=== PATIENT | female | born 1955 | race Caucasian/White ===

== ENCOUNTER → 2017-04-22 | Outpatient (CLI) | payer BC | LOC: HYPER 07:19 | DX: S91.001A Unspecified open wound, right ankle, initial encounter (principal); T63.3 Toxic effect of venom of spider; J43.9 Emphysema, unspecified; F32.9 Major depressive disorder, single episode, unspecified; F17.210 Nicotine dependence, cigarettes, uncomplicated; W57.XXXA Bitten or stung by nonvenomous insect and other nonvenomous arthropods, initial encounter; Y93.89 Activity, other specified; Y92.89 Other specified places as the place of occurrence of the external cause; Y99.8 Other external cause status ==

== ENCOUNTER → 2017-05-07 | Outpatient (CLI) | payer BC | LOC: HYPER 06:59 | DX: T63.6 Toxic effect of contact with other venomous marine animals (principal); J43.9 Emphysema, unspecified; F32.9 Major depressive disorder, single episode, unspecified; F17.210 Nicotine dependence, cigarettes, uncomplicated; W57.XXXD Bitten or stung by nonvenomous insect and other nonvenomous arthropods, subsequent encounter ==

== ENCOUNTER → 2017-09-12 | Outpatient (CLI) | payer BC ==
[~2017-09-12] MED LIST: DOXYCYCLINE 10100 MG PO; HYDROXYZINE HCL25 M1 PO; PREDNISONE 10 M10 MG PO; TRAMADOL 50 MG50 MG PO
== END ==
LOC: RAD 10:02
DX: J90 Pleural effusion, not elsewhere classified (principal)

== ENCOUNTER → 2019-03-04 | Outpatient (CLI) | payer OTHER, BC | LOC: RAD 01:18 | DX: N63.20 Unspecified lump in the left breast, unspecified quadrant (principal); N64.89 Other specified disorders of breast; R92.2 Inconclusive mammogram; Z88.8 Allergy status to other drugs, medicaments and biological substances; Z88.0 Allergy status to penicillin; Z88.2 Allergy status to sulfonamides ==

== ENCOUNTER → 2020-03-06 | Outpatient (CLI) | payer OTHER, BC | LOC: RAD 07:43 | PROVIDERS: ATTEND Family Medicine | DX: Z12.31 Encounter for screening mammogram for malignant neoplasm of breast (principal) ==

== ENCOUNTER 2020-05-04 09:46 | Inpatient (IN) | payer OTHER, BC ==
[~2020-05-04] VITALS: Ht 160 cm; Wt 40.8 kg
[2020-05-04 09:48] VITALS: BP 127/47
[2020-05-04 10:10] LABS: HEMATOCRIT 35.7 % (37.0-47.0); HEMOGLOBIN 11.2 gm/dL (12.0-15.0); MCH 30.9 pg (26.0-34.0); MCHC 31.4 g/dL (28.0-37.0); MCV 98.4 fL (80.0-100.0); RBC 3.63 mil/uL (4.20-5.00); RDW 13.5 % (10.5-14.5)
[2020-05-04] MEDS ORDERED: EUTHYROX100 MCG PO (10:14)
[2020-05-04] MEDS ORDERED: PROTONIX40 M2 PO (10:14)
[2020-05-04] MEDS ORDERED: TIZANIDINE4 MG/1 TA1 PO (10:15)
[2020-05-04] MEDS ORDERED: APAP W/CODEINE1 TA2 PO (10:16)
[2020-05-04] MEDS ORDERED: ALBUTEROL2.5 MG/3 M INH (10:16)
[2020-05-04 10:20] LABS: ANION GAP 4 mmol/L (7-16); BUN 7 mg/dL (7-18); CALCIUM 9.7 mg/dL (8.5-10.1); CHLORIDE 96 mmol/L (98-107); CO2 43 mmol/L (21-32); CREATININE 0.4 mg/dL (0.6-1.0); GLUCOSE 111 mg/dL (74-106); POTASSIUM 4.6 mmol/L (3.5-5.1); SODIUM 143 mmol/L (136-145)
[2020-05-04 10:20] LABS: BE(vivo) 14.4 mmol/L (-2 to +3); HCO3 47.2 mmol/L (22.0-26.0); PCO2 VENOUS 121.5 mmHg (41.0-51.0); PO2 VENOUS 38.9 mmHg (35.0-45.0)
[2020-05-04 10:29] LABS: TROPONIN-I <0.06 ng/mL (<0.06)
--- NOTE | 2020-05-04 11:23 | EKG ---
[facility] [place] [address] ELECTROCARDIOGRAM REPORT Name: YAMILEX DIAZ Room #: REG [facility]..#: [id number] Admission: 05/04/20 Attend Phys: Discharge: Date of : 53 Report #: [id number] THIS REPORT FOR: cc: Jordi Miller MD, Neal A. 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[facility] : 1955 Requested By: Alex Limon Order Number: [id number] MD: Neville Esquivel Measurements Intervals [place] Rate: 111 P: 78 GA: 155 QRS: 77 QRSD: 74 T: 62 QT: 328 QTc: 446 Interpretive Statements Sinus tachycardia Biatrial enlargement Compared to ECG 05/13/2018 11:05:45 Atrial abnormality now present Sinus rhythm no longer present ST (T wave) deviation no longer present Prolonged QT interval no longer present Electronically Signed On 05-04-2020 11:23:05 CDT by Neville Esquivel [email or web address] <ELECTRONICALLY SIGNED> By: Neville Esquivel MD, FACC 05/04/20 [id number] Neville Esquivel MD, [facility] /EPI
[2020-05-04 11:27] LABS: BE(vivo) 11.3 mmol/L (-2 to +3); HCO3 45.7 mmol/L (22.0-26.0); PO2 87.9 mmHg (80.0-100.0); sO2 91.7 % (92.0-98.0)
[2020-05-04 12:30] VITALS: BP 131/67
[2020-05-04 12:32] LABS: HCO3 43.5 mmol/L (22.0-26.0); PO2 147.8 mmHg (80.0-100.0); sO2 97.7 % (92.0-98.0)
[2020-05-04 12:33] LABS: PCO2 147.1 mmHg (35.0-45.0); pH 7.089 (7.360-7.450)
--- NOTE | 2020-05-04 12:33 | NUR ---
NATIVIDAD DIAZ (DAUGHTER) [phone] CHON ABERNATHY ()- [phone] CALLED TO UPDATE ON PT STATUS AND ROOM ASSIGNMENT
--- NOTE | 2020-05-04 13:10 | NUR ---
WAS INFORMED BY DR MILLS THAT PT. IS A DNR AND TO NOT PERFORM FLU SWAB. ADVISED TO INCREASE FIO2 TO 100 FROM 80 IF PT. IS NOT SATTING 90% OR GREATER. TO INCREASE TO 100.
[2020-05-04 17:48] LABS: BE(vivo) 9.9 mmol/L (-2 to +3); HCO3 43.2 mmol/L (22.0-26.0); PO2 147.3 mmHg (80.0-100.0)
[2020-05-04 17:53] LABS: PCO2 127.2 mmHg (35.0-45.0); pH 7.149 (7.360-7.450)
[2020-05-04 21:01] VITALS: BP 122/63
--- NOTE | 2020-05-04 21:03 | NUR ---
ED NURSE ATTEMPTED TO CALL REPORT, WAS TOLD RECEIVING NURSE IS NOT AROUND AND WILL CALL BACK
[2020-05-04 21:23] VITALS: BP 113/63
[2020-05-04 22:34] VITALS: BP 115/54
[2020-05-04 22:54] LABS: BE(vivo) 7.8 mmol/L (-2 to +3); HCO3 37.6 mmol/L (22.0-26.0); PCO2 84.7 mmHg (35.0-45.0); pH 7.265 (7.360-7.450); sO2 97.9 % (92.0-98.0)
[2020-05-04 23:18] VITALS: BP 94/56
--- NOTE | 2020-05-04 23:37 | NUR ---
PATIENT IS A NEW ADMISSION TO THE UNIT THIS SHIFT. SHE ARRIVED VIA CART FROM THE ER AND WAS TRANSFERRED TO THE BED WITHOUT INCIDENT. PATIENT IS ALERT AND ORIENTED BUT HIGHLY ANXIOUS AND PULLING OFF BIPAP. NURSE TO COMPLETE ADMISSION AND INITIATE PLAN OF CARE.
[2020-05-05 03:12] VITALS: BP 129/67
[2020-05-05 08:03] VITALS: BP 92/55
[2020-05-05 11:37] VITALS: BP 111/67
--- NOTE | 2020-05-05 16:27 | NUR ---
Met with patient and spouse at bedside. Patient admits with respitory failure. Spouse reports patient independent with [employer] director of corporate strategy. She has home oxygen usu at 4 liters. Spouse cannot recall name of company at this time. All needs on one level in home with one step from garage. She uses no assistive device. She has shoulder injury and rec home health care from [facility] care director of corporate strategy. spouse works at [employer]. He was away on job in [place] and returns during weekend. Their dtr stays with patient. Dtr noted patient not doing well and called her father who came home. He called EMS. PCP Dr Miller Patient currently on BIPAP anticipate no weekend dc. If dc over weekend. Please call [facility] [phone] to alert of discharge Fax orders to [phone]
[2020-05-05 16:41] VITALS: BP 131/68
--- NOTE | 2020-05-05 17:45 | NUR ---
ASSESSMENT CHARTED - MEDS PER MAR - GIVEN HYDEOCODONE FOR PAIN IN L RIB AREA AND NOSE WITH MOD EFFECT - PT STATED THAT AFTER GIVEN HYDRO THAT IT MADE HER "CRAZY" AND SHE COULD NOT TAKE IT - MED CHANGE TO TYL #3 PER DOCTOR - GIVEN LORAZEPAM 0.5 MGS FOR ANXIOUSNESS ONCE PLACED BACK ON THE BIPAP THIS AFTERNOON - WAS ABLE TO TAKE BIPAP OFF AT APPROX NOON AND LEAVE OFF FOR A FEW HOURS - PT SAT ON 6 L NC 100 RR 20 NO AIR HUNGER NOTED - O2 TRUNED DOWN TO 5 L WITH SAME RESULTS. PT INSISTED ON GETTING UP TO COMMODE TO VOID AND NOT USE BEDPAN PREVIOUSLY AND BECOME VERY WINDED WITH SATS DROPPING PLACED BACK ON BIPAP AT THIS TIME - PT HAS BEEN RESTING COMFORTABLY. SMALL AMOUNT OF DIET AND AVERAGE FLUID INTAKE THIS SHIFT. HAS BEEN AT THE BEDSIDE FOR MOST OF THE DAY. APPEARS TO BE RESTING AT THE PRESENT TIME WITH BIPAP INSTU.
[2020-05-05 19:40] VITALS: BP 143/74
[2020-05-06 03:40] VITALS: BP 143/72
--- NOTE | 2020-05-06 03:52 | NUR ---
ASSESSMENT DOCUMENTED.PT RESTING IN BED IN NO ACUTE DISTRESS AT THIS TIME.A/OX4.ON BIPAP MOST OF THE NOC,TOLERATING TILL LIKE 0300.LUNGS CONGESTED,CONGESTED COUGH,UNABLE TO EXPECTORATE SECRETION.NEB TX.ON O2 AT 5LITERS PNC AT THIS TIME.MCKEON AND EASILY FATIGUE.DENIES ANY NEEDS AT THIS TIME.WILL CONT TO MONITOR PER POC.
[2020-05-06 08:00] VITALS: BP 143/71
[2020-05-06 12:00] VITALS: BP 137/71
--- NOTE | 2020-05-06 14:59 | NUR ---
ALERT AND ORIENTED. EMACIATED. SIGNIFICANT COUGH WITHOUT SPUTUM PRODUCTION. DESATS/TACHYCARDIA WITH MODERATE ACTIVITY. ASSISTED TO BSC PRN. ST PER TELE. AT BEDSIDE. FALL PRECAUTIONS IN PLACE. WILL CONTINUE TO FOLLOW.
[2020-05-06 15:56] VITALS: BP 141/77
[2020-05-06 19:30] VITALS: BP 120/55
[2020-05-07 03:30] VITALS: BP 125/71
--- NOTE | 2020-05-07 06:00 | NUR ---
PT USED 08/17L/NC ALL THROUGH THE NOC.STABLE SATTING ABOVE 95% ON THE CON PULSE OX. REQUIRES ASSIST X 1 TO THE BSC.RESTED REASONABLY WELL THRO THE NOC. GIVEN XANAX OLNY ONE TIME AND SOME CODEINE FOR HEAD, L SHOULDER AND NOSE FROM BEING DRY ( 02 IS HUMIDIFIED).USUALLY JUST YELLS OUT WHN NEEDING HELP. CALL LIGHT WITHIN REACH.
[2020-05-07 08:36] VITALS: BP 118/66
[2020-05-07] MEDS ORDERED: PULMICORT0.5 MG/21 INH (09:08)
[2020-05-07] MEDS ORDERED: PREDNISONE 1 MG1 M1 PO (09:12)
[2020-05-07 09:48] VITALS: BP 118/66
[2020-05-07 11:36] VITALS: BP 118/66
--- NOTE | 2020-05-07 16:37 | NUR ---
Patient wanting to go home as soon as Dr. Miller rounded. Am meds given. Patient anxious and tearful, on the phone with her yelling 'come get me'! Daughter got here and the patient setteled down. Brought home O2 with her. Discussed patient discharge. Notified the home health agency at [phone] that patient was discharging today. IV d/c'd. Patient taken out to 's vehicle by wheelchair.
--- NOTE | 2020-05-08 15:16 | NUR ---
PT DISCHARGED ON MONDAY 05/07 TO HOME WITH HH FAXED DC ORDERS/SUMMARY SPOKE WITH WILFREDO IN INTAKE SHE RECEIVED ORDERS AND WILL ARRANGE VISITS WITH PT.
== END 2020-05-07 12:32 | disposition home health service (06) | DRG 189 ==
LOC: ER 09:46 → 2N 11:59 → EROBS 11:59 → 2N 22:16
PROVIDERS: Emergency Medicine; Pediatrics; ADMIT Family Medicine; ATTEND Family Medicine
PROC: 5A09357 Assistance with Respiratory Ventilation, Less than 24 Consecutive Hours, Continuous Positive Airway Pressure (ICD-10-PCS; principal; 2020-05-04)
PROC: 5A09357 Assistance with Respiratory Ventilation, Less than 24 Consecutive Hours, Continuous Positive Airway Pressure (ICD-10-PCS; 2020-05-05)
PROC: 5A09357 Assistance with Respiratory Ventilation, Less than 24 Consecutive Hours, Continuous Positive Airway Pressure (ICD-10-PCS; 2020-05-06)
DX: J96.21 Acute and chronic respiratory failure with hypoxia (principal); D64.9 Anemia, unspecified; J43.9 Emphysema, unspecified; J96.22 Acute and chronic respiratory failure with hypercapnia; J84.10 Pulmonary fibrosis, unspecified; F17.210 Nicotine dependence, cigarettes, uncomplicated; G89.29 Other chronic pain; M54.9 Dorsalgia, unspecified; F12.90 Cannabis use, unspecified, uncomplicated; E03.9 Hypothyroidism, unspecified; F41.9 Anxiety disorder, unspecified; Z66 Do not resuscitate; Z20.828 Contact with and (suspected) exposure to other viral communicable diseases; Z88.5 Allergy status to narcotic agent; Z79.899 Other long term (current) drug therapy; Z88.0 Allergy status to penicillin; Z88.2 Allergy status to sulfonamides; Z88.8 Allergy status to other drugs, medicaments and biological substances
CPT/HCPCS: 10078; 10081